=== PATIENT | female | born 1995 ===

== ENCOUNTER 2017-05-19 01:05 | Emergency (ER) | payer MEDICAID ==
[2017-05-19 01:13] VITALS: BP 113/48; PULSE 63; RESP 17; TEMP 98
[2017-05-19] MEDS ORDERED: Albuterol-Ipratrop 3 mg / 0.5 (3 ml) UD INH STA ×3 (01:22→01:51)
[2017-05-19] MEDS ORDERED: Promethazine/Cod 6.25mg-10mg/5ml Syr UD PO STA (01:22)
[2017-05-19] MEDS ORDERED: Promethazine/Cod 6.25mg-10mg/5ml Syr UD ONE (01:27)
[2017-05-19] MEDS ORDERED: Albuterol-Ipratrop 3 mg / 0.5 (3 ml) UD ONE (01:28)
--- NOTE | 2017-05-19 01:33 | ED PDOC ---
HPI: CCC, URI, Sore Throat Time Seen by Provider: 05/19/17 01:18 Chief Complaint (Nursing): Flu-like Symptoms Chief Complaint (Provider): cough, shortness of breath, and chest tightness x1 day History Per: Patient History/Exam Limitations: no limitations Have you had recent travel within the past 21 days to any of the following countries: [place], [place], [place] or [place]?: No Onset/Duration Of Symptoms: Days (1) Current Symptoms Are (Timing): Still Present Location Of Pain: None Associated Symptoms: Chills, Cough, Sputum, Vomiting. denies: Fever Severity: Moderate Additional History Per: Patient Additional Complaint(s): 21 y/o female without PMHx who complains that she developed chest tightness and productive cough over the last day. Symptoms have worsened since onset and she reports shortness of breath and inability to breathe at times. She also reports post-tussive vomiting. Denies fever but complains of chills Past Medical History Vital Signs: Last Vital Signs Temp 98 F 05/19/17 01:08 Pulse 63 05/19/17 01:08 Resp 17 05/19/17 01:08 BP 113/48 L 05/19/17 01:08 Pulse Ox 99 05/19/17 01:53 - Medical History PMH: No Chronic Diseases Denies: Gastritis - Surgical History Surgical History: No Surg Hx - Family History Family History: States: Unknown Family Hx - Social History Current smoker - smoking cessation education provided: No Alcohol: None Drugs: Denies - Immunization History Hx Tetanus Toxoid Vaccination: No Hx Influenza Vaccination: No Hx Pneumococcal Vaccination: No - Home Medications Home Medications: Ambulatory Orders Medication Instructions Recorded Dextromethorphan Polistirex 30 mg PO BID #100 rojelio.er.12h 09/11/16 [Delsym] Albuterol HFA [Ventolin HFA 90 1 - 2 puff IH Q6 PRN #1 inhaler 05/19/17 mcg/actuation (8 g)] Benzonatate [Tessalon Perle] 100 mg PO TID PRN #15 capsule 05/19/17 Methylprednisolone [Medrol Dosepak] 4 mg PO ASDIR #1 pkg 05/19/17 - Allergies Allergies/Adverse Reactions: Allergies Allergy/AdvReac Type Severity Reaction Status Date / Time No Known Allergies Allergy Verified 09/11/16 10:21 Review of Systems ROS Statement: Except As Marked, All Systems Reviewed And Found Negative Constitutional: Positive for: Chills Respiratory: Positive for: Cough, Shortness of Breath Physical Exam - Reviewed Nursing Documentation Reviewed: Yes Vital Signs Reviewed: Yes - Physical Exam Appears: Positive for: Well, Non-toxic, Uncomfortable Head Exam: Positive for: ATRAUMATIC, NORMAL INSPECTION, NORMOCEPHALIC Skin: Positive for: Normal Color, Warm, DRY Eye Exam: Positive for: EOMI, Normal appearance, PERRL ENT: Positive for: Normal ENT Inspection Neck: Positive for: Normal, Painless ROM Cardiovascular/Chest: Positive for: Regular Rate, Rhythm Respiratory: Positive for: Wheezing (bilateral end expiratory). Negative for: Rales, Rhonchi, Respiratory Distress Gastrointestinal/Abdominal: Positive for: Normal Exam, Bowel Sounds, Soft Back: Positive for: Normal Inspection Extremity: Positive for: Normal ROM Neurologic/Psych: Positive for: Alert, Oriented - Laboratory Results Result Diagrams: 05/19/17 01:40 05/19/17 01:40 - ECG ECG Rhythm: Positive for: Normal QRS, Normal ST Segment, Sinus Rhythm (94). Negative for: ST/T Changes Interpretation Of EC:36: NSR rate 94. No ST elevation or other abnormality. O2 Sat by Pulse Oximetry: 97 (RA) Pulse Ox Interpretation: Normal - Radiology X-Ray: Interpreted by Me, Viewed By Wi X-Ray Interpretation: No Acute Disease Medical Decision Making Medical Decision Making: Impression: 21 y/o female with cough and shortness of breath Plan: - EKG - CXR - Duo Neb - Solumedrol - Phenergan with Codeine CXR showed no acute disease. Labs reviewed and showed no clinically significant findings excluding elevated WBC which is likely stress related leukemoid reaction. Diagnosis: Bronchitis Condition: Stable Scribe Attestation: Documented by Antonia Fulton, acting as a scribe for Ramirez Lockwood MD Provider Scribe Attestation: All medical record entries made by the Scribe were at my direction and personally dictated by me. I have reviewed the chart and agree that the record accurately reflects my personal performance of the history, physical exam, medical decision making, and the department course for this patient. I have also personally directed, reviewed, and agree with the discharge instructions and disposition. Disposition - Clinical Impression Clinical Impression: Bronchospasm with bronchitis, acute - Patient ED Disposition Is Patient to be Admitted: No Doctor Will See Patient In The: Office Counseled Patient/Family Regarding: Studies Performed, Diagnosis, Need For Followup - Disposition Disposition: Routine/Home Disposition Time: 02:36 Condition: STABLE Prescriptions: Albuterol HFA [Ventolin HFA 90 mcg/actuation (8 g)] 1 - 2 puff IH Q6 PRN #1 inhaler PRN Reason: Shortness Of Breath Benzonatate [Tessalon Perle] 100 mg PO TID PRN #15 capsule PRN Reason: Cough Methylprednisolone [Medrol Dosepak] 4 mg PO ASDIR #1 pkg Instructions: Acute Bronchitis (ED), Bronchospasm (ED) Forms: [employer] (Ivorian)
[2017-05-19 01:51] LABS: BASO # 0.1 K/uL (0.0-0.2); BASO % 0.4 % (0.0-2.0); EOS # 0.6 K/uL (0.0-0.7); EOS % 4.1 % (0.0-4.0); LYMPH # 3.2 K/uL (1.0-4.3); LYMPH % 21.7 % (20.0-40.0); MEAN CELL VOLUME 81.4 fl (81.0-99.0); MEAN CORPUSCULAR HEMOGLOBIN 26.6 pg (27.0-31.0); MEAN CORPUSCULAR HGB CONC 32.6 g/dL (33.0-37.0); MEAN PLATELET VOLUME 9.4 fl (7.2-11.7); MONO % 6.8 % (0.0-10.0); RED CELL DISTRIBUTION WIDTH 13.8 % (11.5-14.5); WHITE BLOOD COUNT 14.9 K/uL (4.8-10.8)
[2017-05-19 01:58] LABS: ALKALINE PHOSPHATASE 81 U/L (38-126); ALT/SGPT 34 U/L (9-52); AST/SGOT 24 U/L (14-36); BILIRUBIN,TOTAL 0.3 mg/dl (0.2-1.3); BLOOD UREA NITROGEN 10 mg/dl (7-17); CALCIUM 8.3 mg/dL (8.4-10.2); CARBON DIOXIDE 24 mmol/L (22-30); CHLORIDE 105 mmol/L (98-107); GFR AFRICAN-AMERICAN > 60; GLUCOSE,RANDOM 87 mg/dL (65-105); POTASSIUM 3.9 MMOL/L (3.6-5.0); SODIUM 142 mmol/l (132-148)
[2017-05-19 02:16] LABS: ALB/GLOB RATIO 1.3 (1.0-2.1)
[2017-05-19 02:42] VITALS: O2SAT 97
--- NOTE | 2017-05-19 08:24 | CARD ---
APPROVED REPORT EKG Measurement Heart [id number] <Conclusion> Normal sinus rhythm Normal ECG
--- NOTE | 2017-05-19 09:01 | RAD ---
HISTORY: cough COMPARISON: Chest radiographs 09/11/2016. TECHNIQUE: Chest PA and lateral FINDINGS: LUNGS: No acute infiltrate or other airspace disease appreciate bilaterally. Inspiratory volume appears slightly diminished in the interval. PLEURA: No significant pleural effusion identified. No pneumothorax apparent. CARDIOVASCULAR: Normal. OSSEOUS STRUCTURES: No significant abnormalities. VISUALIZED UPPER ABDOMEN: Normal. OTHER FINDINGS: None. IMPRESSION: Diminished history volume mildly noted. However no infiltrate or pleural effusion is noted bilaterally. There is no pneumothorax bilaterally either. No interval cardiovascular pathology grossly evident.
== END 2017-05-19 02:49 | disposition home or self-care (01) ==
LOC: H.ER 01:05
DX: J20.9 Acute bronchitis, unspecified (principal)
CPT/HCPCS: 71020; 80053; 81025; 85025; 93005; 94150; 94640; 96374; 99285; J2930

== ENCOUNTER 2017-09-26 00:43 | Emergency (ER) | payer SELFPAY ==
[2017-09-26 00:55] VITALS: BP 109/73; PULSE 94; RESP 18; TEMP 97.8; O2SAT 97
[2017-09-26] MEDS ORDERED: Morphine 4 MG/ML VIAL IVP ONE (02:07)
[2017-09-26] MEDS ORDERED: Morphine 4 MG/ML VIAL ONE (02:13)
[2017-09-26] MEDS ORDERED: Albuterol-Ipratrop 3 mg / 0.5 (3 ml) UD IH STA (02:26)
--- NOTE | 2017-09-26 02:30 | ED PDOC ---
HPI: CCC, URI, Sore Throat Time Seen by Provider: 09/26/17 01:24 Chief Complaint (Nursing): ENT Problem Chief Complaint (Provider): cough, congestion History Per: Patient History/Exam Limitations: no limitations Onset/Duration Of Symptoms: Days (2 weeks) Current Symptoms Are (Timing): Still Present Location Of Pain: Throat Associated Symptoms: Sore Throat, Cough, Sputum, Nasal Congestion Additional Complaint(s): 22 y/o female presents with cough, congestion x 2 weeks. PAtient reports nasal congestion, pressure/fullness to both ears, sore throat, and productive cough. Patient tried dayquil, theraflu without improvement. Denies fever, nausea/ vomiting, chest pain, shortness of breath, abdominal pain, urinary symptoms, recent travel, sick contacts. Past Medical History Reviewed: Historical Data, Nursing Documentation, Vital Signs Vital Signs: Last Vital Signs Temp 97.8 F 09/26/17 00:48 Pulse 94 H 09/26/17 00:48 Resp 18 09/26/17 00:48 BP 109/73 09/26/17 00:48 Pulse Ox 97 09/26/17 02:31 - Medical History PMH: No Chronic Diseases Denies: Gastritis - Surgical History Surgical History: No Surg Hx - Family History Family History: States: Unknown Family Hx - Immunization History Hx Tetanus Toxoid Vaccination: No Hx Influenza Vaccination: No Hx Pneumococcal Vaccination: No - Home Medications Home Medications: Ambulatory Orders Medication Instructions Recorded Dextromethorphan Polistirex 30 mg PO BID #100 rojelio.er.12h 09/11/16 [Delsym] Albuterol HFA [Ventolin HFA 90 1 - 2 puff IH Q6 PRN #1 inhaler 05/19/17 mcg/actuation (8 g)] Benzonatate [Tessalon Perle] 100 mg PO TID PRN #15 capsule 05/19/17 Methylprednisolone [Medrol Dosepak] 4 mg PO ASDIR #1 pkg 05/19/17 Albuterol HFA [Ventolin HFA 90 1 puff IH Q4 PRN #1 inh 09/26/17 mcg/actuation (8 g)] Azithromycin [Zithromax] 250 mg PO DAILY #1 packet 09/26/17 Benzonatate [Tessalon Perle] 100 mg PO TID PRN #15 capsule 09/26/17 Fluticasone Nasal [Flonase] 1 actuation NS BID #1 bottle 09/26/17 - Allergies Allergies/Adverse Reactions: Allergies Allergy/AdvReac Type Severity Reaction Status Date / Time No Known Allergies Allergy Verified 09/11/16 10:21 Review of Systems ROS Statement: Except As Marked, All Systems Reviewed And Found Negative ENT: Positive for: Ear Pain, Nose Congestion Respiratory: Positive for: Cough, Sputum Physical Exam - Reviewed Nursing Documentation Reviewed: Yes Vital Signs Reviewed: Yes - Physical Exam Appears: Positive for: Well, Non-toxic, No Acute Distress Head Exam: Positive for: ATRAUMATIC, NORMAL INSPECTION, NORMOCEPHALIC Skin: Positive for: Normal Color Eye Exam: Positive for: Normal appearance ENT: Positive for: Nasal Congestion Cardiovascular/Chest: Positive for: Regular Rate, Rhythm Respiratory: Positive for: Normal Breath Sounds Gastrointestinal/Abdominal: Positive for: Normal Exam Back: Positive for: Normal Inspection Extremity: Positive for: Normal ROM Neurologic/Psych: Positive for: Alert, Oriented - ECG O2 Sat by Pulse Oximetry: 97 - Radiology X-Ray: Viewed By Ne X-Ray Interpretation: No Acute Disease - Progress ED Course And Treament: strep, chest xray, duoneb, ibuprofen Patient educated on findings, discharged with rx albuterol HFA, flonase, tessalon. Rx Zpak given with instructions to trial other rx's first; start if no improvement in 48 hours. Follow up PMD 2-3 days. Fluids. Rest. Return precautions given. Disposition - Clinical Impression Clinical Impression: URI (upper respiratory infection), Bronchospasm - Patient ED Disposition Is Patient to be Admitted: No Counseled Patient/Family Regarding: Studies Performed, Diagnosis, Need For Followup, Rx Given - Disposition Referrals: [facility] [Outside] Disposition: Routine/Home Disposition Time: 03:36 Condition: IMPROVED Prescriptions: Albuterol HFA [Ventolin HFA 90 mcg/actuation (8 g)] 1 puff IH Q4 PRN #1 inh PRN Reason: Wheezing Azithromycin [Zithromax] 250 mg PO DAILY #1 packet Benzonatate [Tessalon Perle] 100 mg PO TID PRN #15 capsule PRN Reason: Cough Fluticasone Nasal [Flonase] 1 actuation NS BID #1 bottle Instructions: Viral Upper Respiratory Infection, Adult (DC)
[2017-09-26] MEDS ORDERED: Albuterol-Ipratrop 3 mg / 0.5 (3 ml) UD ONE (02:39)
--- NOTE | 2017-09-26 09:10 | RAD ---
HISTORY: COMPARISON: 05/19/2017. TECHNIQUE: Chest PA and lateral FINDINGS: LINES AND TUBES: None. LUNG AND PLEURA: The lungs are well inflated and clear. HEART AND MEDIASTINUM: The heart is not enlarged. The hilar and mediastinal contours are within normal limits. SKELETAL STRUCTURES: The bony structures are within normal limits for the patient's age. VISUALIZED UPPER ABDOMEN: Normal. OTHER FINDINGS: None. IMPRESSION: No active pulmonary disease.
== END 2017-09-26 04:04 | disposition home or self-care (01) ==
LOC: H.ER 00:43
DX: J98.01 Acute bronchospasm (principal); J06.9 Acute upper respiratory infection, unspecified

== ENCOUNTER 2017-11-23 11:12 | Emergency (ER) | payer MEDICAID ==
[2017-11-23 11:27] VITALS: TEMP 96; O2SAT 98
[2017-11-23 11:28] VITALS: BMI 31.8
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
[2017-11-23 15:10] VITALS: BP 100/69; PULSE 67; RESP 18
== END 2017-11-23 15:11 | disposition home or self-care (01) ==
LOC: H.ER 11:12
DX: M62.838 Other muscle spasm (principal); G89.29 Other chronic pain
CPT/HCPCS: 81025; 96372; 99284; J1885

== ENCOUNTER 2018-07-09 14:50 | Emergency (ER) | payer MEDICAID, OTHER ==
[2018-07-09 14:50] VITALS: BMI 31.8
[2018-07-09 15:06] VITALS: O2SAT 98
[2018-07-09] MEDS ORDERED: Sodium Chloride 0.9% 1,000 ML IV STA (16:05)
[2018-07-09 16:29] LABS: BASO % 0.2 % (0.0-2.0); EOS # 0.2 K/uL (0.0-0.7); EOS % 1.5 % (0.0-4.0); HEMOGLOBIN 16.1 g/dL (12.0-16.0); LYMPH % 8.3 % (20.0-40.0); MEAN CORPUSCULAR HEMOGLOBIN 27.4 pg (27.0-31.0); MEAN CORPUSCULAR HGB CONC 33.5 g/dL (33.0-37.0); MEAN PLATELET VOLUME 9.1 fl (7.2-11.7); MONO # 0.6 K/uL (0.0-0.8); NEUT # 10.4 K/uL (1.8-7.0); NRBC % 0.2 % (0.0-0.0); PLATELET COUNT 249 K/uL (130-400); RBC 5.89 Mil/uL (3.80-5.20); RED CELL DISTRIBUTION WIDTH 13.6 % (11.5-14.5); WHITE BLOOD COUNT 12.2 K/uL (4.8-10.8)
[2018-07-09 16:38] LABS: ALB/GLOB RATIO 1.2 (1.0-2.1); ALBUMIN 4.6 g/dL (3.5-5.0); ALT/SGPT 32 U/L (9-52); AST/SGOT 38 U/L (14-36); BLOOD UREA NITROGEN 13 mg/dl (7-17); CALCIUM 9.4 mg/dL (8.4-10.2); GFR NON-AFRICAN AMERICAN > 60
--- NOTE | 2018-07-09 18:43 | ED PDOC ---
HPI: Abdomen Time Seen by Provider: 07/09/18 15:08 Chief Complaint (Nursing): GI Problem Chief Complaint (Provider): N/V/D, diffuse abdominal pain History Per: Patient History/Exam Limitations: no limitations Onset/Duration Of Symptoms: Days Outside of [place] travel?: No Location Of Pain/Discomfort: Diffuse Additional Complaint(s): 22 yo female with history of migraines presents for evaluation of N/V/D. Pt reports watery diarrhea. Pt with diffuse cramping abdominal pain. Pt denies fever/chills. PT states her nephew was home with her yesterday due to similar symptoms. Past Medical History Reviewed: Historical Data, Nursing Documentation, Vital Signs Vital Signs: Last Vital Signs Temp 97.7 F 07/09/18 15:04 Pulse 94 H 07/09/18 15:04 Resp 16 07/09/18 15:04 BP 95/61 L 07/09/18 15:04 Pulse Ox 98 07/09/18 15:04 - Medical History PMH: No Chronic Diseases Denies: Gastritis, Chronic Kidney Disease - Surgical History Surgical History: No Surg Hx - Family History Family History: States: Unknown Family Hx - Living Arrangements Living Arrangements: With Family - Social History Current smoker - smoking cessation education provided: No - Immunization History Hx Tetanus Toxoid Vaccination: No Hx Influenza Vaccination: No Hx Pneumococcal Vaccination: No - Home Medications Home Medications: Ambulatory Orders Medication Instructions Recorded Dextromethorphan Polistirex 30 mg PO BID #100 rojelio.er.12h 09/11/16 [Delsym] Albuterol HFA [Ventolin HFA 90 1 - 2 puff IH Q6 PRN #1 inhaler 05/19/17 mcg/actuation (8 g)] Benzonatate [Tessalon Perle] 100 mg PO TID PRN #15 capsule 05/19/17 Methylprednisolone [Medrol Dosepak] 4 mg PO ASDIR #1 pkg 05/19/17 Albuterol HFA [Ventolin HFA 90 1 puff IH Q4 PRN #1 inh 09/26/17 mcg/actuation (8 g)] Azithromycin [Zithromax] 250 mg PO DAILY #1 packet 09/26/17 Benzonatate [Tessalon Perle] 100 mg PO TID PRN #15 capsule 09/26/17 Fluticasone Nasal [Flonase] 1 actuation NS BID #1 bottle 09/26/17 Cyclobenzaprine [Cyclobenzaprine 10 mg PO Q8 PRN #12 tab 11/23/17 HCl] Naproxen 500 mg PO BID PRN #20 tab 11/23/17 Famotidine [Pepcid] 20 mg PO BID #28 tab 07/09/18 Ondansetron ODT [Zofran ODT] 4 mg PO QID #20 odt 07/09/18 - Allergies Allergies/Adverse Reactions: Allergies Allergy/AdvReac Type Severity Reaction Status Date / Time No Known Allergies Allergy Verified 09/11/16 10:21 Review of Systems ROS Statement: Except As Marked, All Systems Reviewed And Found Negative Constitutional: Negative for: Fever, Chills Cardiovascular: Negative for: Chest Pain Gastrointestinal: Positive for: Nausea, Vomiting, Abdominal Pain, Diarrhea Genitourinary Female: Negative for: Dysuria, Frequency, Vaginal Discharge Physical Exam - Reviewed Nursing Documentation Reviewed: Yes Vital Signs Reviewed: Yes - Physical Exam Appears: Positive for: Well, Non-toxic, No Acute Distress Head Exam: Positive for: ATRAUMATIC, NORMAL INSPECTION, NORMOCEPHALIC Skin: Positive for: Normal Color, Warm, DRY Eye Exam: Positive for: Normal appearance ENT: Positive for: Normal ENT Inspection Neck: Positive for: Normal, Painless ROM Cardiovascular/Chest: Positive for: Regular Rate, Rhythm Respiratory: Positive for: Normal Breath Sounds. Negative for: Accessory Muscle Use, Respiratory Distress Gastrointestinal/Abdominal: Positive for: Normal Exam, Soft. Negative for: Tenderness, Organomegaly, Mass, Rebound Back: Positive for: Normal Inspection Extremity: Positive for: Normal ROM Neurologic/Psych: Positive for: Alert, Oriented - Laboratory Results Result Diagrams: 07/09/18 16:20 07/09/18 16:20 - ECG O2 Sat by Pulse Oximetry: 98 Pulse Ox Interpretation: Normal Medical Decision Making Medical Decision Making: Labs normal. PT reports feeling better on re-evaluation. Disposition - Clinical Impression Clinical Impression: Acute gastroenteritis - Patient ED Disposition Is Patient to be Admitted: No Counseled Patient/Family Regarding: Diagnosis, Need For Followup, Rx Given - Disposition Disposition: Routine/Home Disposition Time: 18:44 Condition: STABLE Prescriptions: Famotidine [Pepcid] 20 mg PO BID #28 tab Ondansetron ODT [Zofran ODT] 4 mg PO QID #20 odt Instructions: Gastroenteritis (ED) - POA Present On Arrival: None
[2018-07-09 19:04] VITALS: BP 111/63; PULSE 78; RESP 18; TEMP 98.6
[2018-07-09 19:31] LABS: BANDS 2 % (0-2); EOSINOPHIL 2 % (0-7); LYMPHOCYTE 13 % (20-50); MONOCYTE 6 % (0-10); NEUTROPHIL 77 % (42-75); PLATELET ESTIMATE NORMAL (NORMAL); TOTAL CELLS COUNTED 100
[2018-07-09 19:32] LABS: HYPOCHROMIC SLIGHT; MICROCYTOSIS SLIGHT
== END 2018-07-09 19:04 | disposition home or self-care (01) ==
LOC: H.ER 14:50
DX: K52.9 Noninfective gastroenteritis and colitis, unspecified (principal)
CPT/HCPCS: 80053; 81025; 85025; 96360; 99284; J2765; J7030